=== PATIENT | male | born 1960 | race Caucasian/White ===

== ENCOUNTER 2020-06-21 18:01 | Emergency (ER) | payer OTHER ==
[~2020-06-21 18:01] MED LIST: ONDANSETRON ODT4 MG PO
== END 2020-06-21 21:05 | disposition home or self-care (01) ==
LOC: FER 18:01
DX: S60.132A Contusion of left middle finger with damage to nail, initial encounter (principal); X58.XXXA Exposure to other specified factors, initial encounter; Y92.009 Unspecified place in unspecified non-institutional (private) residence as the place of occurrence of the external cause
CPT/HCPCS: 73130

== ENCOUNTER 2020-09-14 14:15 | Emergency (ER) | payer OTHER ==
[2020-09-14] MEDS ORDERED: IBUPROFEN800 MG PO (17:40)
[2020-09-14] MEDS ORDERED: NORCO 5-325 TA1 EACH PO (17:40)
== END 2020-09-14 17:58 | disposition home or self-care (01) ==
LOC: FER 14:15
DX: S67.192A Crushing injury of right middle finger, initial encounter (principal); S67.194A Crushing injury of right ring finger, initial encounter; S67.196A Crushing injury of right little finger, initial encounter; S61.212A Laceration without foreign body of right middle finger without damage to nail, initial encounter; Z98.890 Other specified postprocedural states; W23.1XXA Caught, crushed, jammed, or pinched between stationary objects, initial encounter
CPT/HCPCS: 73130; 96372; J1885

== ENCOUNTER 2020-11-15 16:52 | Emergency (ER) | payer OTHER ==
[~2020-11-15 16:52] MED LIST changes: +IBUPROFEN800 MG PO; +NORCO 5-325 TA1 EACH PO
[2020-11-15 17:22] LABS: BASOPHIL 0.9 % (0-2); EOSINOPHIL 3.9 % (0-5); HCT 46.9 % (42.0-52.0); HGB 15.9 g/dl (13.2-18.0); LYMPHOCYTE 28.5 % (15-48); MCH 29.4 pg (25.0-31.0); MCHC 33.9 g/dL (32.0-36.0); MCV 86.7 fL (78.0-100.0); MONOCYTE 6.1 % (0-12); MPV 10.1 fL (6.0-9.5); NEUTROPHIL 60.5 % (41-80); NRBC 0; PLT 331 K/uL (150-400); RBC 5.41 M/uL (4.70-6.00); RDW 12.2 % (11.5-14.0); WBC 7.5 K/uL (4.0-10.5)
[2020-11-15 17:31] LABS: INR 1.02 (0.9-1.2); PROTHROMBIN TIME 12.8 SECONDS (11.8-13.4); PTT 25.5 SECONDS (24.4-34.7)
[2020-11-15 17:47] LABS: ALBUMIN 4.2 g/dL (3.4-5.0); BILIRUBIN - TOTAL 0.6 mg/dL (0.2-1.0); BUN/CREAT RATIO (CALC) 7.7 RATIO; CREATININE 0.78 mg/dL (0.67-1.17); GLOBULIN (CALCULATION) 3.6 g/dL; POTASSIUM 4.1 mmol/L (3.5-5.1); TOTAL PROTEIN 7.8 g/dL (6.4-8.2)
== END 2020-11-15 18:24 | disposition left against medical advice (07) ==
LOC: FER 16:52
PROVIDERS: Internal Medicine
DX: Z53.8 Procedure and treatment not carried out for other reasons (principal)
CPT/HCPCS: 36415; 70450; 80053; 80061; 82550; 82553; 83874; 84484; 85025; 85610; 85730; 93005; G0480

== ENCOUNTER 2021-07-08 12:09 | Emergency (ER) | payer OTHER | END 2021-07-08 16:00 | disposition left against medical advice (07) | LOC: FER 12:09 | DX: F10.10 Alcohol abuse, uncomplicated (principal); Z53.29 Procedure and treatment not carried out because of patient's decision for other reasons | CPT/HCPCS: 99282 ==